=== PATIENT | female | born 1985 ===

== ENCOUNTER 2025-01-26 09:25 | Emergency (ER) | payer SELFPAY ==
[2025-01-26 09:37] VITALS: BP 114/64
--- NOTE | 2025-01-26 10:01 | ED.GENMED ---
History of Present Illness
General
Chief Complaint: Rectal Bleeding
Source: patient
Exam Limitations: none
Time Seen by Provider: 01/26/25 09:50
Nursing documentation reviewed up to this point in time: agreed with
History of Present Illness
History of Present Illness:
Note:
CHIEF COMPLAINT(S)
Persistent rectal bleeding for three days.
HISTORY OF PRESENT ILLNESS
The patient is a 39-year-old female who presents to the emergency department with complaints of rectal bleeding persisting for three days. She reports that the last time she experienced similar symptoms, she was diagnosed with sepsis. The patient
describes the blood as bright red and notes a significant amount oozing with pressure. She suspects she might have internal hemorrhoids. Additionally, the patient reports experiencing a low-grade fever, which measured 100.8�F last night, along with
body aches and a mild cough. She expresses difficulty with urination, noting that her bladder does not seem to empty completely.
ADDITIONAL HISTORY OBTAINED FROM SOURCES OTHER THAN THE PATIENT
The patients holly�, identified as Ruchi, accompanied her and expressed concern after noticing the blood.
REVIEW OF SYSTEMS
- Constitutional: Low-grade fever, body aches.
- Cardiovascular: No specific complaints of chest pain or palpitations mentioned.
- Respiratory: Mild cough.
- Gastrointestinal: Bright red rectal bleeding, possible internal hemorrhoids.
- Genitourinary: Difficulty with complete bladder emptying.
PHYSICAL EXAM
General: Alert, no acute distress.
Skin: Warm, dry.
Head: Normocephalic, atraumatic.
Eye, Ears, Nose, Mouth, and Throat: Oral mucosa moist.
Cardiovascular: Normal peripheral perfusion, no edema.
Respiratory: Respirations are non-labored.
Gastrointestinal: Abdomen nondistended.
Back: Normal range of motion, normal alignment.
Musculoskeletal: Normal range of motion, normal strength.
Neurological: Alert and oriented to person, place, time, and situation, no focal neurological deficit observed.
Psychiatric: Cooperative, appropriate mood & affect.
PLAN
- Blood tests to assess for infection or anemia.
- Chest X-ray to check for any respiratory issues.
- Testing for COVID-19 and influenza.
- Urinalysis to assess kidney function and check for infection.
- Bladder scan to evaluate for urinary retention.
DIFFERENTIAL DIAGNOSIS
The Differential Diagnosis includes, in no particular order and is not limited to:
1. Hemorrhoids
2. Infectious colitis
3. Diverticulosis
4. Anal fissure
5. Lower gastrointestinal bleeding
6. Sepsis
7. Inflammatory bowel disease
8. Urinary tract infection
9. Respiratory infection (e.g., influenza, COVID-19)
10. Anemia
EKG
My independent EKG interpretation is:
- Time of EKG: Not specified
- Rhythm: Normal sinus rhythm
- Heart Rate: 69 beats per minute
- Notable Intervals:
- OR Interval: Normal
- QRS Duration: Normal
- QT Interval: Normal
- [place]: Normal
- Abnormalities Observed: Sinus arrhythmia
- ST Segment: Normal
- T Waves: Normal
CARE-UPDATE
01/26/25 - 12:24
Vital signs stable. Hemacult test is faintly positive with brown stool, suggesting possible internal hemorrhoids. Normal hemoglobin levels. Possible viral infection, though the patient denies symptoms. abdomen exam is benign, and the patient is
stable for discharge. Advise follow-up with gastroenterology and primary care. Return precautions discussed with the patient.
Disposition:
SUMMARY OF ENCOUNTER
The patient, a 39-year-old female, presented to the emergency department with persistent rectal bleeding lasting three days. She suspected internal hemorrhoids. Alongside the rectal bleeding, she reported a low-grade fever, body aches, mild cough,
and difficulty urinating completely. In the emergency department, a digital rectal exam indicated bright red bleeding likely linked to hemorrhoids, and a hemoccult test was faintly positive with brown stool. Vital signs remained stable. Potential
viral infection was suspected due to reported fever, but no signs of focal infection were noted. The patient was assessed and considered stable for discharge.
DISPOSITION
Discharge
ASSESSMENT
The patients symptoms and exam findings suggest hemorrhoids as the primary source of rectal bleeding. Possible viral infection given the low-grade fever and mild cough, yet without further respiratory distress or signs of significant infection.
PLAN
- Evaluate further bleeding and potential related complications.
- Follow-up consultations arranged with gastroenterology and primary care for ongoing management and monitoring.
INDEPENDENT REVIEW OF LABS AND INTERPRETATION OF TESTS
My independent review of the hemoccult test is faintly positive with brown stool, indicating possible internal hemorrhoids.
MEDICAL DECISION MAKING
-Complexity of Data Reviewed:
Chronic conditions affecting care: None significant mentioned. Differential diagnosis list includes hemorrhoids, infectious colitis, diverticulosis, anal fissure, lower gastrointestinal bleeding, sepsis, inflammatory bowel disease, urinary tract
infection, respiratory infection (e.g., influenza, COVID-19), anemia.
-Data:
Category 1
Clinical information was obtained from an independent historian: The patients fianc� provided input, expressing concern upon seeing blood from the rectal bleeding.
Category 2
My independent interpretation of the digital rectal exam shows bright red bleeding, likely due to hemorrhoids.
-Risk
Consideration of Admission/Observation: Escalation of care including admission/observation was considered given the complexity and risk of the patients presenting complaint, exam findings, and/or their underlying comorbidities. However, ultimately,
I feel the patient is safe for outpatient management with close follow-up. Reasoning: Work-up is reassuring, does not reveal any acute life/organ-threatening processes, patients symptoms well-controlled upon reevaluation, reexamination is
reassuring, vitals are stable, patient agreeable with discharge, reliable for follow-up.
DIAGNOSIS
- Hemorrhoids (ICD-10: K64.9)
- Possible viral infection (ICD-10: B34.9)
Phy Exam
Physical Exam
Physical Exam:
.
Course
Orders/Labs/Results
Orders:
Orders
01/26/25 09:40
EKG [Electrocardiogram (*1)] Urgent
Reason for Study: Palpitations
EKG- Treatment ONCE
01/26/25 09:43
Test Result ONCE
01/26/25 10:16
Type+Screen Urgent
Complete Blood Count/With Diff Urgent
Comprehensive Metabolic Panel Urgent
Free T4 Urgent
HCG, Serum Qualitative Screen Urgent
Comment: Notify provider if positive test present
Lactic Acid Q4H
Comment: CANCEL 2nd LACTIC ACID IF 1st LACTIC ACID IS LESS THAN 2
PTT Urgent
Prothrombin Time Urgent
TSH Reflex To Free T4 Urgent
Comment: TSH REFLEX ADDED ON BY FLOOR 11:30AM 01-26-25
01/26/25 11:34
Add On- LAB Urgent
Tests Added?: TSH with reflex free T4
Abnormal Lab Results
01/26/25
10:16
WBC 3.6 L 10^3/uL
(4.8-10.8)
MCHC 32.3 L g/dL
(33.0-37.0)
MPV 10.5 H fL
(7.4-10.4)
Absolute Lymphs (auto) 1.1 L 10^3/uL
(1.2-3.4)
Monocytes % 11.1 H %
(1.7-9.3)
Lactic Acid 0.6 L mmol/L
(0.7-2.0)
TSH (Reflex) 0.33 L uIU/ml
(0.47-4.68)
01/26/25 10:16
01/26/25 10:16
Vital Signs
Initial and Last Documented VS:
Initial Vital Signs
Temp Pulse Resp BP Pulse Ox
98.2 F 91 16 114/64 98
01/26/25 09:37 01/26/25 09:37 01/26/25 09:37 01/26/25 09:37 01/26/25 09:37
Last Documented Vital Signs
Temp Pulse Resp BP Pulse Ox
98.2 F 70 16 95/60 98
01/26/25 09:37 01/26/25 12:30 01/26/25 12:52 01/26/25 12:00 01/26/25 12:52
*Pulse Oximetry
SaO2: 98
Oxygen Mode of Delivery: Room air
Patient hypoxic: no
*Critical Care Note
Total Time (30-74mins, 75-104mins- exclusive of procedures): Not Applicable
ED Attending Note
-
Portions of this chart may have been created with voice recognition software.� Occasional wrong word or��sound alike� substitutions may have occurred due to the inherent limitations of voice recognition software.
Discharge Plan
Departure
Patient Disposition: Home (Routine Discharge)
Date of Disposition: 01/26/25
Time of Disposition: 12:21
Patient with high blood pressure during this ER visit?: No
Condition: Good
Discharge Problem:
Rectal bleeding, Acute viral syndrome
Instructions: Bloody Stools, Adult (DC), Fever in adults - ED (DC)
Prescriptions:
No Action
escitalopram oxalate [Lexapro] 10 mg Tablet
10 mg PO DAILY
acetaminophen [Tylenol] 325 mg Tablet
650 mg PO Q6HPRN PRN (Reason: FEVER)
clonazepam 1 mg Tablet
1 mg PO HS
hydroxychloroquine [Plaquenil] 200 mg Tablet
200 mg PO QPM
dextroamphetamine-amphetamine [Adderall XR] 30 mg Capsule,Extended Release 24hr
30 mg PO DAILYPRN PRN (Reason: WORKING DAYS ONLY)
bupropion HCl [Wellbutrin XL] 300 mg Tablet Extended Release 24 Hr
300 mg PO DAILY
Referrals:
Jonh Storey MD [Active, Gastroenterology] - Call in 1-3 days for appt
UNKNOWN - PT DOES,NOT KNOW [Family Provider]
Interventions
Interventions:
*Risk Screen - Suicide Last Done: 01/26/25 09:37
*General Assessment Last Done: 01/26/25 12:21
*Neglect/Abuse Screening Last Done: 01/26/25 09:37
*ED- Fall Risk Assessment Last Done: 01/26/25 12:21
*ED COVID-19 Vaccine History Last Done: 01/26/25 10:55
*ED Influenza Vaccine History Last Done: 01/26/25 10:55
*Nursing Disposition Last Done: 01/26/25 12:52
AS-Lpmupb-Gynsygajei Assessment Last Done: 01/26/25 12:21
ED- Cardiac Assessment Last Done: 01/26/25 12:21
ED- Pulmonary Assessment Last Done: 01/26/25 12:21
Discharge Date and Time
Discharge Date/Time: 01/26/25 13:01
Print Language: [place]
[2025-01-26 10:08] VITALS: BMI 21.7
[2025-01-26 10:17] VITALS: BP 93/59
[2025-01-26 10:33] LABS: Hematocrit 37.1 % (37.0-47.0); Hemoglobin 12.0 g/dL (12.0-16.0); Mean Corp Hgb Conc. 32.3 g/dL (33.0-37.0); Mean Corpuscular Volume 83.4 fL (81.0-99.0); Nucleated Red Blood Cells % 0 %; Platelet Count 313 10^3/uL (130-400); Red Cell Dist. Width 12.7 % (11.5-14.5)
[2025-01-26 10:44] LABS: INR 0.96; PT 13.1 Sec (11.4-14.6)
[2025-01-26 10:45] LABS: APTT 30.6 Sec (23.4-35.0)
[2025-01-26 10:46] LABS: HCG, Serum Qualitative Screen Negative
[2025-01-26 10:58] LABS: ALT (SGPT) 16 U/L (0-35); AST (SGOT) 19 U/L (14-36); Albumin 4.4 g/dl (3.5-5.0); Alkaline Phosphatase 55 U/L (38-126); Blood Urea Nitrogen 12 mg/dl (7-17); Calcium 9.4 mg/dl (8.4-10.2); Carbon Dioxide 29 mmol/L (22-30); Chloride 106 mmol/L (98-107); Estimated Creatinine Clearance 74 ml/min; Glucose 79 mg/dl (70-99); Potassium 4.1 mmol/L (3.5-5.1); Sodium 139 mmol/L (135-145); Total Protein 7.1 g/dl (6.3-8.2); eGFR > 60.00
[2025-01-26 11:00] VITALS: BP 93/60
[2025-01-26 12:00] VITALS: BP 95/60
== END 2025-01-26 13:01 | disposition home or self-care (01) ==
LOC: EMR 09:25
PROVIDERS: Emergency Medicine; EMERGENCY PHYSICIAN Emergency Medicine
DX: K62.5 Hemorrhage of anus and rectum (principal); B34.9 Viral infection, unspecified; Z11.52 Encounter for screening for COVID-19
CPT/HCPCS: 99283; 80053; 83605; 84439; 84443; 84703; 85025; 85610; 85730; 86850; 86900; 86901; 93005